=== PATIENT | female | born 1985 ===

== ENCOUNTER 2020-11-11 20:05 | Outpatient (REF) | payer OTHER, SELFPAY ==
[2020-11-11 19:28] LABS: Abs Immature Grans 0.07 10^3/uL (0.0-0.06); Absolute Basophil Count 0.08 10^3/uL (0.0-0.2); Absolute Eosinophil Count 0.24 10^3/uL (0.0-0.7); Absolute Lymphocyte Count 3.45 10^3/uL (1.2-3.4); Basophils % 0.4; Eosinophils % 1.3; HCT 37.2 % (36.0-46.0); HGB 12.1 g/dL (11.2-15.7); Immature Grans % 0.4; Lymphocytes % 18.4; MCH 26.3 pg (27.0-33.0); MCHC 32.5 % (32.0-36.0); MCV 80.9 fL (80-95); MPV 10.6 fL (8.0-11.0); Monocytes % 4.4; Neutrophils % 75.1; Nucleated RBC 0 %; Platelet Count 648 10^3/uL (130-400); RDW 19.3 % (11.7-14.6); RDW-SD 56.6 fL; WBC 18.76 10^3/uL (4.4-10.8)
[2020-11-11 19:30] LABS: Absolute Monocyte Count 0.83 10^3/uL (0.1-0.8); Absolute Neutrophil Count 14.09 10^3/uL (1.2-6.7)
[2020-11-11 19:42] LABS: Iron 38 ug/dL (50-170); Total Iron Binding Capacity 345 ug/dL (250-450); Transferrin Sat 11 % (15-50)
[2020-11-11 20:08] LABS: ALT 20 U/L (14-59); AST 12 U/L (15-37); Albumin 2.9 g/dL (3.4-5.0); Alkaline Phosphatase 95 U/L (46-116); Anion Gap 9.4 mmol/L (3-11); BUN 8 mg/dL (7-18); Bilirubin, Total 0.3 mg/dL (0.2-1.0); CO2 21.6 mmol/L (21.0-32.0); Calcium 8.8 mg/dL (8.5-10.1); Calculated LDL 94 mg/dL (<100); Chloride 106 mmol/L (98-107); Cholesterol 164 mg/dL (<200); Ferritin 9 ng/mL (8-252); Glucose 78 mg/dL (74-106); HDL Cholesterol 57 mg/dL (40-60); Potassium 4.4 mmol/L (3.5-5.1); Sodium 137 mmol/L (136-145); TSH (W/Ref FT4) 0.35 uIU/mL (0.36-3.74); Total Protein 6.2 g/dL (6.4-8.2); Triglyceride 65 mg/dL (<150); Vitamin B12 483 pg/mL (193-986)
[2020-11-11 20:25] LABS: FREE T4 1.03 ng/dL (0.76-1.46)
[2020-11-13 05:04] LABS: Vitamin D 25 Total 22.6 ng/ml (30-100)
[2020-11-17 12:17] LABS: IgA 214 mg/dL (85-499); Interpretation (See Note); Tissue Transglutaminase IgA <1.2 U/mL (<4.0)
== END 2020-11-11 20:25 ==
LOC: NCHCN 20:05
PROVIDERS: PCP Internal Medicine; Visit Provider Physician Assistant
DX: E03.9 Hypothyroidism, unspecified (principal); I10 Essential (primary) hypertension; E55.9 Vitamin D deficiency, unspecified; R10.84 Generalized abdominal pain; F11.20 Opioid dependence, uncomplicated; F41.9 Anxiety disorder, unspecified; R53.83 Other fatigue; E61.1 Iron deficiency
CPT/HCPCS: 80053; 80061; 82306; 82784; 83516; 82607; 82728; 83540; 83550; 84439; 84443; 85025